=== PATIENT | female | born 1990 | race African-American/Black ===

== ENCOUNTER 2018-05-26 11:14 | Emergency (ER) | payer SELFPAY ==
[~2018-05-26] VITALS: Ht 170.2 cm; Wt 67.1 kg
[2018-05-26] MEDS ORDERED: ONDANSETRON HCL/PF 4 MG/2 ML VIAL ONE (11:53)
[2018-05-26] MEDS ORDERED: MORPHINE SULFATE INJ 4 MG/ML DISP.SYRIN ONE ×2 (11:53→13:01)
--- NOTE | 2018-05-26 12:05 | NUR ---
PT CAME IN WITH C/O ON/OFF LOWER ABDOMINAL PAIN RADIATES TO RUQ ABD X 2 MONTHS. SEEN BY [employer] FOR EVAL. DENIES TRAUMA. VSS. SAFETY AND COMFORT MEASURES PROVIDED. WILL MONITOR.
[2018-05-26] MEDS: IV NS 0.9% 1,000 ML BAG IV ONE (12:07)
[2018-05-26] MEDS: MORPHINE SULFATE INJ 2 MG/ML DISP.SYRIN IV ONE ×2 (12:08→13:30)
[2018-05-26] MEDS: ONDANSETRON HCL/PF 4 MG/2 ML VIAL IVP ONE (12:08)
[2018-05-26 13:02] LABS: BASOPHILS % (AUTO) 1.1 % (0.0-2.0); EOSINOPHILS % (AUTO) 1.5 % (0.0-6.0); HEMATOCRIT 32 % (33-45); HEMOGLOBIN 10.2 g/dL (11.5-14.8); LYMPHOCYTES % (AUTO) 31.4 % (20.0-44.0); MEAN CORPUSCULAR HGB CONC 33 g/dl (31.0-36.0); MEAN CORPUSCULAR VOLUME 85 fL (82-100); MONOCYTES # (AUTO) 0.3 /CMM (0.1-1.30); MONOCYTES % (AUTO) 8.3 % (2.0-12.0); NEUTROPHILS # (AUTO) 1.9 /CMM (1.8-8.9); NEUTROPHILS % (AUTO) 57.7 % (43.0-81.0); PLATELET COUNT (AUTO) 232 /CMM (150-450); RDW COEFFICIENT OF VARIATION 11.7 (11.5-15.0); RED BLOOD CELL COUNT(AUTO) 3.73 MIL/uL (4.0-5.2); WHITE BLOOD COUNT (AUTO) 3.2 K/uL (4.3-11.0)
[2018-05-26 13:11] LABS: CALCIUM, SERUM 7.4 mg/dL (8.5-10.1); CREATININE 0.7 mg/dL (0.6-1.3); POTASSIUM 3.5 mmol/L (3.5-5.1)
[2018-05-26 13:31] LABS: APPEARANCE,URINE Clear (CLEAR); BILIRUBIN,URINE Negative (NEGATIVE); BLOOD, URINE Trace-lysed Ery/uL (NEGATIVE); COLOR,URINE Yellow (YELLOW); KETONES,URINE Negative (NEGATIVE); LEUKOCYTE ESTERASE ,URINE Negative (NEGATIVE); NITRITE, URINE Negative (NEGATIVE); PROTEIN,URINE Negative (NEGATIVE); UGLUCOSE Negative (NEGATIVE); UROBILINOGEN,URINE 0.2 EU/dL (0.2)
[2018-05-26 13:35] LABS: BACTERIA,URINE Few /HPF (None Seen); RBC,URINE 0-2 /HPF (0-2); SQUAMOUS EPITHELIAL CELL,UR Few /HPF (None Seen); WBC,URINE 0-2 /HPF (0-3)
[2018-05-26] MEDS ORDERED: IOHEXOL-300 100 ML VIAL IV ONE (14:13)
[2018-05-26] MEDS ORDERED: IV NS 0.9% 250 ML IV ONE (14:13)
[2018-05-26] MEDS ORDERED: CT SWABBABLE VALVE TRANS SET 1 EA INFUS.SET MC ONE (14:13)
--- NOTE | 2018-05-26 15:45 | NUR ---
IV removed. Catheter intact and site benign. Pressure and 4x4 applied to site. No bleeding noted.
--- NOTE | 2018-05-26 16:01 | NUR ---
Patient discharged to home in stable condition. Written and verbal after care instructions given. Patient verbalizes understanding of instruction.
[2018-05-26 16:09] VITALS: BP 117/75
== END 2018-05-26 16:10 | disposition home or self-care (01) ==
LOC: ER 11:16
DX: R10.2 Pelvic and perineal pain (principal); J45.909 Unspecified asthma, uncomplicated; Z88.1 Allergy status to other antibiotic agents; Z88.8 Allergy status to other drugs, medicaments and biological substances; Z98.890 Other specified postprocedural states
CPT/HCPCS: 36415; 76856-TC; 80048-TC; 81000-TC; 84703-TC; 85025-TC; A4606; J2270; J2405; J7030; J7050; Q9967; Z7610